=== PATIENT | female | born 1980 | race Caucasian/White ===

== ENCOUNTER 2018-11-05 16:40 | Emergency (ER) | payer OTHER ==
[~2018-11-05] VITALS: Ht 160 cm; Wt 72.6 kg
[2018-11-05] MEDS ORDERED: LEVOTHYROXINE (17:15)
[2018-11-05] MEDS ORDERED: SERTRALINE (17:15)
[2018-11-05] MEDS ORDERED: TRAZODONE (17:15)
[2018-11-05] MEDS ORDERED: CLONIDINE (17:15)
[2018-11-05] MEDS ORDERED: AMLODIPINE (17:15)
[2018-11-05] MEDS ORDERED: LAMOTRIGINE (17:15)
[2018-11-05] MEDS ORDERED: METOPROLOL (17:15)
[2018-11-05] MEDS ORDERED: ANTABUSE (17:15)
[2018-11-05] MEDS ORDERED: ZOFRAN ODT (17:15)
[2018-11-05] MEDS ORDERED: LISINOPRIL (17:15)
[2018-11-05] MEDS ORDERED: DISULFIRAM (17:15)
[2018-11-05] MEDS ORDERED: BUPROPION (17:15)
[2018-11-05] MEDS ORDERED: NALTREXONE (17:15)
--- NOTE | 2018-11-05 17:15 | NUR ---
PT CAME WITH MED LIST - STATES SHE DOES NOT KNOW HER DOSAGES.
--- NOTE | 2018-11-05 18:13 | NUR ---
Patient discharged to home in stable conditon. Written and verbal after care instructions given. Patient verbalizes understanding of instructions.PT WALKS IN STEADY GAIT. NO SIGN OFDISTRESS AT THIS TIME.
[2018-11-05 18:14] VITALS: BP 131/81
== END 2018-11-05 18:15 | disposition home or self-care (01) ==
LOC: ER 16:40
DX: R51 Headache (principal); R42 Dizziness and giddiness; E03.9 Hypothyroidism, unspecified; Z79.891 Long term (current) use of opiate analgesic; Z79.899 Other long term (current) drug therapy
CPT/HCPCS: 70450; A4663